=== PATIENT | male | born 1930 | race Caucasian/White ===

== ENCOUNTER 2019-05-10 14:52 | Inpatient (IN) | payer MEDICARE, MEDICAID ==
[~2019-05-10] VITALS: Ht 170.2 cm; Wt 62.1 kg
[2019-05-10 16:26] LABS: BASOPHILS % (AUTO) 0.7 % (0.0-2.0); EOSINOPHILS % (AUTO) 0.6 % (0.0-6.0); HEMATOCRIT 38 % (39-51); HEMOGLOBIN 12.7 g/dL (13.5-17.5); LYMPHOCYTES # (AUTO) 1.1 /CMM (0.8-4.8); LYMPHOCYTES % (AUTO) 23.4 % (20.0-44.0); MEAN CORPUSCULAR HGB CONC 33 g/dl (31.0-36.0); MEAN CORPUSCULAR VOLUME 90 fL (80-96); MONOCYTES # (AUTO) 0.6 /CMM (0.1-1.30); MONOCYTES % (AUTO) 13.1 % (2.0-12.0); NEUTROPHILS # (AUTO) 2.8 /CMM (1.8-8.9); NEUTROPHILS % (AUTO) 62.2 % (43.0-81.0); PLATELET COUNT (AUTO) 206 /CMM (150-450); RED BLOOD CELL COUNT(AUTO) 4.29 MIL/uL (4.5-6.0); WHITE BLOOD COUNT (AUTO) 4.5 K/uL (4.3-11.0)
[2019-05-10 16:36] LABS: SERUM AMMONIA 11 umol/L (11-32)
[2019-05-10 16:38] LABS: CALCIUM, SERUM 9.5 mg/dL (8.5-10.1); CARBON DIOXIDE 28 mmol/L (21-32); CHLORIDE 101 mmol/L (98-107); CREATININE 1.5 mg/dL (0.6-1.3); GLUCOSE 107 mg/dL (74-106); POTASSIUM 4.2 mmol/L (3.5-5.1); SODIUM SERUM 138 mmol/L (136-145); UREA NITROGEN, BLOOD 18 mg/dL (7-18)
[2019-05-10 16:43] LABS: ACETAMINOPHEN < 2 ug/ml (10-30); ALANINE AMINOTRANSFERASE 14 U/L (12-78); ALKALINE PHOSPHATASE 28 U/L (46-116); ASPARTATE AMINOTRANSFERASE 15 U/L (15-37); BILIRUBIN,DIRECT 0.1 mg/dL (0.0-0.2); BILIRUBIN,TOTAL 0.4 mg/dL (0.2-1.0); TOTAL PROTEIN, SERUM 7.7 g/dL (6.4-8.2)
--- NOTE | 2019-05-10 16:43 | NUR ---
PT REC;D TO ER VIA EMS PT LIVES IN SNF WAS SITTING IN CHAIR HAD A SYNOPE EVENT FOR 2 MIN NO FALL IV LEFT AC 18G FAMILY AT BEDSIDE PT HAS DEMETIA AND DOSNT WALK ALERT [id number] EVALUATION BY ER PROVIDER.LABS DRAWN SENT TO LAB
[2019-05-10] MEDS ORDERED: ONDANSETRON HCL/PF 4 MG/2 ML VIAL ONE (16:45)
[2019-05-10 16:48] LABS: THYROID STIMULATING HORMONE 1.598 uIU/mL (0.358-3.74)
[2019-05-10] MEDS ORDERED: RISP0.253 PO (17:07)
[2019-05-10] MEDS ORDERED: MEMA10TA PO (17:07)
[2019-05-10] MEDS ORDERED: AMLO5TAB9 PO (17:07)
[2019-05-10] MEDS ORDERED: TIMO5SOL11 EACHEYE (17:07)
[2019-05-10] MEDS ORDERED: CALC-7 PO (17:07)
[2019-05-10] MEDS ORDERED: BISA10SU11 RC (17:07)
[2019-05-10] MEDS ORDERED: LORA-259 PO (17:07)
[2019-05-10] MEDS ORDERED: DONE10TA44 PO (17:07)
[2019-05-10] MEDS ORDERED: MAGN400O6 PO (17:07)
[2019-05-10] MEDS ORDERED: BENA20TA9 PO (17:07)
[2019-05-10] MEDS ORDERED: BACL10TA PO (17:07)
[2019-05-10] MEDS ORDERED: MELO-107 PO (17:07)
[2019-05-10] MEDS ORDERED: ESCI10TA PO (17:07)
[2019-05-10] MEDS ORDERED: ACET-2605 PO (17:07)
[2019-05-10] MEDS ORDERED: DENO120V SQ (17:11)
[2019-05-10] MEDS ORDERED: LEUP30KI3 IM (17:11)
[2019-05-10] MEDS ORDERED: LEUP22.53 IM (17:18)
--- NOTE | 2019-05-10 17:22 | NUR ---
CALLED HOUSE [facility]P FOR TELE BED
--- NOTE | 2019-05-10 17:32 | NUR ---
IN AND OUT CLEAN CATCH DONE SENT TO LAB
[2019-05-10 17:36] LABS: BILIRUBIN,URINE Negative (NEGATIVE); BLOOD, URINE Trace-intact Ery/uL (NEGATIVE); COLOR,URINE Yellow (YELLOW); KETONES,URINE Negative (NEGATIVE); LEUKOCYTE ESTERASE ,URINE Negative (NEGATIVE); NITRITE, URINE Negative (NEGATIVE); PROTEIN,URINE Trace mg/dl (NEGATIVE); UGLUCOSE Negative (NEGATIVE); UROBILINOGEN,URINE 0.2 EU/dL (0.2)
[2019-05-10 17:37] LABS: APPEARANCE,URINE SLIGHTLY HAZY (CLEAR)
[2019-05-10 17:53] LABS: BACTERIA,URINE Few /HPF (None Seen); SQUAMOUS EPITHELIAL CELL,UR Rare /HPF (None Seen)
[2019-05-10 17:54] LABS: WBC,URINE 0-2 /HPF (0-3)
--- NOTE | 2019-05-10 18:24 | NUR ---
TELE BED 324-2 GIVEN
--- NOTE | 2019-05-10 18:51 | NUR ---
REPORT GIVEN TO ISABEL SANCHEZ FOR EFFIE
--- NOTE | 2019-05-10 19:08 | NUR ---
CALLED [facility]. FULLERETTE WAS PAGED.
[2019-05-10 19:50] VITALS: BP_SYST 123; BP_SYST 98; BP_DIAS 56; BP_DIAS 70
--- NOTE | 2019-05-10 19:50 | NUR ---
TAX COMPLIANCE OFFIC[place] DRIVER NOTE RECEIVED PATIENT VIA [employer]. A/O X1.
--- NOTE | 2019-05-10 19:50 | NUR ---
CARD GRADEREXERCISE PHYSIOLOGY PROFESSOR NOTE RECEIVED PATIENT VIA [employer]. A/O X1. TOLERATING ROOM AIR 98%. RESPIRATIONS ARE EVEN AND UNLABORED. NO SIGNS OF SOB NOTED. DENIES PAIN AT THIS TIME. EXTERNAL TELE MONITOR READS SINUS ALLY 57. NO APPARENT DISTRESS AT THIS TIME. IV ACCES IN LAC #18 PATENT AND SALINE LOCKED. FAMILY IS AT THE BEDSIDE. INITIAL PHYSICAL ASSESSMENT COMPLETED. SKIN ASSESSMENT COMPLETED AND PHOTOS TAKEN AND PLACED IN CHART. BELONGINGS LIST COMPLETED BY LANDSCAPE ACCOUNT MANAGER. ROOM ORIENTATIONS GIVEN. BED IS LOW AND LOCKED. SIDE RAILS UP X2. CALL LIGHT WITHIN REACH. WILL CONTINUE TO MONITOR.
[2019-05-10] MEDS ORDERED: ONDANSETRON HCL/PF 4 MG/2 ML VIAL IVP PRN (20:00)
[2019-05-10] MEDS ORDERED: ACETAMINOPHEN 325 MG TABLET PO PRN (20:00)
[2019-05-10] MEDS ORDERED: Z GUARD REMEDY 2 OZ OINT TP PRN (20:00)
[2019-05-10] MEDS ORDERED: ZOLPIDEM TARTRATE 5 MG TABLET PO PRN (20:00)
[2019-05-10] MEDS ORDERED: MISCELLANEOUS MED 1 EA EA PO PRN (20:00)
[2019-05-10] MEDS ORDERED: BISACODYL SUPP (10 MG) 10 MG/SUPP.RECT SUPP.RECT RC PRN (20:00)
[2019-05-10] MEDS ORDERED: LORAZEPAM 1 MG TABLET PO PRN (20:00)
[2019-05-10] MEDS ORDERED: MAG HYDROX/AL HYDROX/SIMETH 30 ML UDC PO PRN (20:00)
[2019-05-10] MEDS ORDERED: HYDROCODONE/APAP 5/325MG 1 EACH TABLET PO PRN (20:00)
[2019-05-10] MEDS ORDERED: MAGNESIUM HYDROXIDE 30 ML UDC PO PRN ×2 (20:00)
[2019-05-10 21:00] VITALS: BP 123/70
[2019-05-10] MEDS: ENOXAPARIN SODIUM 40 MG/0.4 ML DISP.SYRIN SQ SCH ×2 (21:00→21:23)
[2019-05-10] MEDS: risperiDONE 0.25 MG TABLET PO SCH ×3 (21:06→22:00)
[2019-05-10] MEDS: IV NS 0.9% 1,000 ML IV PRN (21:06)
--- NOTE | 2019-05-10 21:10 | NUR ---
ASSISTANT PASTRY CHEF NOTE EXTERNAL TELE MONITOR READS HR 160. ASSESSED PATIENT, HE IS HAVING TREMORS AND IS SHAKING. PATIENT CALMS AND HR RETURNS TO BASELINE. WILL CONTINUE TO MONITOR.
--- NOTE | 2019-05-10 21:30 | NUR ---
HAMMERER TAB NOTE FROY ENA, DAUGHTER OF PATIENT, REFUSED MED RESPIRADOL AND LOVENOX. STATES DOES NOT WANT PATIENT TO BE PLACED ON RESPERDOL, THE PREVIOUS FACILITY THE PATIENT ATTENDED DC RESPERDOL AND WANTS THE DOCTOR TO DC IT NOW. SHE IS OK WITH PATIENT ONLY TAKING ATIVAN WHEN NEEDED. WILL ENDORSE DAY SHIFT NURSE TO NOTIFY DR. MCDUFFIE ALSO REFUSED LOVENOX BECAUSE BELIEVES THAT THE PATIENT DOES NOT NEED IT BECAUSE "HE IS NOT TOTALLY BED RIDDEN, HE GOES TO THE WHEELCHAIR IS IS ABLE TO MOVE HIS LEGS". EXPLAINED TO THE DPDOLORES HE IS MOSTLY LAYING IN BED WELL RISK AND BENEFITS AND FROY STILL REFUSED MEDICATION. WILL CONTINUE TO MONITOR.
[2019-05-11] VITALS: BP 113/63
--- NOTE | 2019-05-11 | NUR ---
BULLET SWAGING MACHINE OPERATOR NOTE PATIENT IS SINUS ALLY HR 55. WILL CONTINUE TO MONITOR.
[2019-05-11 04:00] VITALS: BP 129/81
--- NOTE | 2019-05-11 04:00 | NUR ---
POLYSOMNOGRAPHY TECHNICIAN NOTE PATIENT IS SB 56. IN NO APPARENT DISTRESS. WILL CONTINUE TO MONITOR.
--- NOTE | 2019-05-11 06:44 | NUR ---
AGILE DEVELOPER CLOSING NOTE PATIENT IS RESTING IN BED. A/OX1. REMAINS TOLERATING ROOM AIR. RESPIRATIONS ARE EVEN AND UNLABORED. NO SIGNS OF SOB NOTED THROUGHOUT SHIFT. NO C/O PAIN THROUGHOUT SHIFT. EXTERNAL TELE MONITOR READS SINUS ALLY 56. NO DISTRESS NOTED THROUGHOUT SHIFT. IV ACCES MAINTAINED IN LAC #18 RUNNING NS@ 75ML/HR. ALL NURSING NEEDS MET. SKIN KEPT CLEAN AND DRY, TURNED Q2HR. BED IS LOW AND LOCKED. SIDE RAILS UP X2. CALL LIGHT WITHIN REACH. WILL ENDORSE TO NEXT SHIFT FOR EFFIE.
[2019-05-11 07:09] LABS: BASOPHILS % (AUTO) 0.5 % (0.0-2.0); EOSINOPHILS % (AUTO) 1.5 % (0.0-6.0); HEMATOCRIT 34 % (39-51); HEMOGLOBIN 11.3 g/dL (13.5-17.5); LYMPHOCYTES # (AUTO) 1.4 /CMM (0.8-4.8); LYMPHOCYTES % (AUTO) 47.5 % (20.0-44.0); MEAN CORPUSCULAR HGB CONC 33 g/dl (31.0-36.0); MEAN CORPUSCULAR VOLUME 88 fL (80-96); MONOCYTES # (AUTO) 0.4 /CMM (0.1-1.30); MONOCYTES % (AUTO) 14.8 % (2.0-12.0); NEUTROPHILS % (AUTO) 35.7 % (43.0-81.0); PLATELET COUNT (AUTO) 176 /CMM (150-450); RED BLOOD CELL COUNT(AUTO) 3.82 MIL/uL (4.5-6.0); WHITE BLOOD COUNT (AUTO) 2.9 K/uL (4.3-11.0)
[2019-05-11 07:40] LABS: THYROID STIMULATING HORMONE 0.894 uIU/mL (0.358-3.74)
[2019-05-11 07:48] LABS: CALCIUM, SERUM 8.5 mg/dL (8.5-10.1); PHOSPHORUS 3.7 mg/dL (2.5-4.9); POTASSIUM 4.2 mmol/L (3.5-5.1)
--- NOTE | 2019-05-11 07:53 | NUR ---
DREDGE PIPE INSTALLER OPENING NOTES RECEIVED PATIENT IN BED ASLEEP. AROU[place]ALE TO VERBAL AND TACTILE STIMULI. ALERT AND ORIENTED X1. VERBALLY RESPONSIVE. ON TELE MONITORING SINUS ALLY WITH HR: 58. NO SOB OBSERVED. DENIES ANY C/O PAIN NOR DISCOMFORT. IV ACCESS SITE INTACT AND PATENT INFUSING NS # 75ML/HR CATRACHITO WELL. BED IN LOWEST POSITION, LOCKED. CALL LIGHT WITHIN REACH.
[2019-05-11 08:00] VITALS: BP 139/76
--- NOTE | 2019-05-11 09:13 | NUR ---
BIOLOGICAL TECHNICIAN NOTES PATIENT SEEN BY PT CATRACHITO THERAPY WELL.
[2019-05-11] MEDS: TIMOLOL -XE 0.5% 5 ML BOTTLE EACHEYE SCH (09:40)
[2019-05-11] MEDS: ESCITALOPRAM OXALATE (10 MG) 10 MG TABLET PO SCH (09:40)
[2019-05-11] MEDS: MEMANTINE HCL 5 MG TABLET PO SCH ×2 (09:40→17:14)
[2019-05-11] MEDS: CALCIUM CARB 250MG /VITAMIN D 1 UDTAB PO SCH ×2 (09:41→17:15)
[2019-05-11] MEDS: BACLOFEN (10 MG) 10 MG TABLET PO SCH ×3 (09:41→17:15)
[2019-05-11] MEDS: GENTAMICIN OPTH SOLN 0.3% 5 ML BOTTLE EACHEYE SCH ×3 (13:08→21:32)
[2019-05-11] MEDS: IV NS 0.9% 1,000 ML IV PRN (13:09)
[2019-05-11 16:00] VITALS: BP 145/70
--- NOTE | 2019-05-11 18:53 | NUR ---
PHOSPHORIC ACID OPERATOR CLOSING NOTES ALERT AND AWAKE ORIENTED TO SELF ONLY. CONFUSED. DAUGHTER AT BEDSIDE. HOB ELEVATED. NO SOB. ASPIRATION PRECAUTIONS OBSERVED AT AL TIMES. ON TELE MONITORING SINUS ALLY WITH HR: 61. PATIENT WITH EPISODE OF REMOVING LEADS AND PLAYING WITH IV TUBINGS DURING THE SHIFT, ABLE TO BE REDIRECTED AT TIMES. FREQUENT VISUAL CHECK DONE. RIGHT FA # 22 INTACT AND PATENT INFUSING NS @ 75ML/HR CATRACHITO WELL. BED IN LOWEST POSITION, LOCKED. BED ALARM ON. CALL LIGHT WITHIN REACH. IN NO APPARENT DISTRESS.
--- NOTE | 2019-05-11 19:10 | NUR ---
household refrigerator mechanic notes Received Pt from morning nurse. Pt is alert and oriented X1. Pt is resting in bed comfortably. Pt's daughter at the bedside. Respiration is normal. No SOB. No S/S of distress noted. IV sites at RFA # 22 is clean, intact, patent and infuising well NS @ 75ml/hr. shot coat tender showed sinus bradycardia 54 bpm. POC was discussed with Pt's daughter Fani. Pt's daughter verbalize understanding and also agree to have lovenox given to Pt tonight. Safety precautions is maintained all the time. Bed at low position, brakes locked, side rails upX3, call light is within reach and bed alarm is on. Will continue to monitor.
[2019-05-11 20:00] VITALS: BP 125/68
[2019-05-11] MEDS: risperiDONE 0.25 MG TABLET PO SCH (21:32)
[2019-05-11] MEDS: ENOXAPARIN SODIUM 40 MG/0.4 ML DISP.SYRIN SQ SCH (21:32)
[2019-05-12] VITALS: BP 134/72
[2019-05-12] MEDS: IV NS 0.9% 1,000 ML IV PRN ×2 (02:05→16:06)
[2019-05-12 04:00] VITALS: BP 130/69
[2019-05-12 06:25] LABS: BASOPHILS % (AUTO) 0.7 % (0.0-2.0); HEMATOCRIT 38 % (39-51); HEMOGLOBIN 12.7 g/dL (13.5-17.5); LYMPHOCYTES # (AUTO) 1.6 /CMM (0.8-4.8); LYMPHOCYTES % (AUTO) 51.1 % (20.0-44.0); MEAN CORPUSCULAR HGB CONC 33 g/dl (31.0-36.0); MEAN CORPUSCULAR VOLUME 89 fL (80-96); MONOCYTES # (AUTO) 0.4 /CMM (0.1-1.30); MONOCYTES % (AUTO) 14.3 % (2.0-12.0); NEUTROPHILS % (AUTO) 31.9 % (43.0-81.0); PLATELET COUNT (AUTO) 189 /CMM (150-450); RED BLOOD CELL COUNT(AUTO) 4.27 MIL/uL (4.5-6.0); WHITE BLOOD COUNT (AUTO) 3.1 K/uL (4.3-11.0)
[2019-05-12 06:27] LABS: CALCIUM, SERUM 8.7 mg/dL (8.5-10.1); CREATININE 0.9 mg/dL (0.6-1.3); POTASSIUM 3.9 mmol/L (3.5-5.1)
--- NOTE | 2019-05-12 07:10 | NUR ---
violin maker hand notes Pt is alert and oriented X1. Pt is resting in bed comfortably. No SOB. No S/S of distress noted. IV sites at RFA is clean, intact, patent and infusing well NS @ 75 ml/hr. Routine meds were given as ordered. child monitor showed Sinus darnell with 50 bpm. Kept Pt warm, clean and comfortably. Safety precautions is maintained. Bed at low position, brakes locked, side rails upX2 and padded, call light is within reach. Will endorse to morning nurse for EFFIE.
[2019-05-12 07:30] VITALS: BP 146/78
--- NOTE | 2019-05-12 07:54 | NUR ---
DINKER OPENING NOTES RECEIVED PT SITTING UPRIGHT IN BED. PT IS ORIENTED TO NAME. PT IS AFEBRILE. RESPIRATIONS ARE EVEN AND UNLABORED, NOT IN ANY ACUTE DISTRESS NOTED. PT DENIES ANY PAIN AT THIS TIME, NO C/O SOB, N/V. IV SITE TO RFA INTACT, NO INFILTRATION NOTED. DRESSING KEPT CLEAN AND DRY. SAFETY MEASURES ARE IN PLACE. INSTRUCTED PT TO USE CALL LIGHT WHEN ASSISTANCE IS NEEDED, NEEDS FREQUENT ORIENTATION. CALL LIGHT IS LEFT WITHIN REACH. WILL MONITOR THROUGHOUT SHIFT FOR CONTINUITY OF CARE.
[2019-05-12 08:00] VITALS: BP 146/78
[2019-05-12] MEDS: BACLOFEN (10 MG) 10 MG TABLET PO SCH ×3 (08:25→16:06)
[2019-05-12] MEDS: ESCITALOPRAM OXALATE (10 MG) 10 MG TABLET PO SCH (08:25)
[2019-05-12] MEDS: MEMANTINE HCL 5 MG TABLET PO SCH ×2 (08:25→16:06)
[2019-05-12] MEDS: CALCIUM CARB 250MG /VITAMIN D 1 UDTAB PO SCH ×2 (08:25→16:05)
[2019-05-12] MEDS: TIMOLOL -XE 0.5% 5 ML BOTTLE EACHEYE SCH (08:27)
[2019-05-12] MEDS: GENTAMICIN OPTH SOLN 0.3% 5 ML BOTTLE EACHEYE SCH ×4 (08:27→21:06)
--- NOTE | 2019-05-12 09:30 | NUR ---
MS RN NOTES-- PT SEEN AND EXAMINED BY DR. BARBER.
--- NOTE | 2019-05-12 12:30 | NUR ---
MS RN NOTES-- CALLED RADIOLOGY FOR ORDERED EEG. GAVE ME THE PHONE NUMBER FOR AYYO FOR THE VALVE GRINDER. STILL WAITING A CALL BACK.
--- NOTE | 2019-05-12 14:30 | NUR ---
MS RN NOTES-- RECEIVED A CALL BACK FROM [facility]. PER YAYO, HE WILL BE HERE BY 1730 TODAY. NOTIFIED DTR AT BEDSIDE.
[2019-05-12 16:40] VITALS: BP_SYST 159; BP_SYST 96; BP_DIAS 48; BP_DIAS 80
--- NOTE | 2019-05-12 18:27 | NUR ---
MS RN CLOSING NOTES ALL DUE MEDS GIVEN, NEEDS MET AND RENDERED. PT IS A/O X1, AFEBRILE. RESPIRATIONS ARE EVEN AND UNLABORED, NOT IN ANY ACUTE DISTRESS NOTED. PT DENIES ANY PAIN AT THIS TIME, NO C/O SOB, N/V. IV SITE TO RFA INTACT, NO INFILTRATION NOTED. DRESSING KEPT CLEAN AND DRY. SAFETY MEASURES ARE IN PLACE. REMINDED PT TO USE CALL LIGHT WHEN ASSISTANCE IS NEEDED, CALL LIGHT IS LEFT WITHIN REACH. WILL ENDORSE TO NEXT SHIFT FOR CONTINUITY OF CARE.
--- NOTE | 2019-05-12 19:05 | NUR ---
MS RN NOTES RECEIVE PT IN BED ASLEEP BUT EASILY AWOKEN VERBALLY OR BY TOUCH WITH FAMILY AT BEDSIDE. PT A/O X1. RESPIRATIONS ARE EVEN AND UNLABORED WITH NO S/S OF ACUTE DISTRESS OR SOB NOTED. PT DENIES ANY PAIN AT THIS TIME. PT WITH IV SITE TO RFA INTACT WITH NS INFUSING @75ML/HR. SAFETY MEASURES IN PLACE WITH BED IN LOWEST LOCKED POSITION WITH SIDE RAILS UP X2. CALL LIGHT WITHIN REACH. WILL CONTINUE TO MONITOR.
[2019-05-12 20:00] VITALS: BP 146/78
[2019-05-12] MEDS: risperiDONE 0.25 MG TABLET PO SCH (21:06)
[2019-05-12] MEDS: ENOXAPARIN SODIUM 40 MG/0.4 ML DISP.SYRIN SQ SCH (21:08)
[2019-05-13] MEDS: IV NS 0.9% 1,000 ML IV PRN (05:29)
--- NOTE | 2019-05-13 07:19 | NUR ---
RN OPENING NOTE PT WAS RECEIVED IN BED AT LOWEST AND LOCKED POSITION WITH SIDE RAILS UP X2, A/O X1 BREATHING EVEN AND UNLABORED ON RA, NO S/S OF ANY DISTRESS OR PAIN AT THIS TIME, IV IS PATENT AND INTACT, SAFETY PRECAUTIONS IN PLACE, CALL LIGHT WITHIN REACH, WILL MONITOR ACCORDINGLY.
--- NOTE | 2019-05-13 07:40 | NUR ---
MS RN NOTES PT IN BED ASLEEP BUT EASILY AWOKEN VERBALLY OR BY TOUCH WITH FAMILY AT BEDSIDE. PT A/O X1. RESPIRATIONS ARE EVEN AND UNLABORED WITH NO S/S OF ACUTE DISTRESS OR SOB NOTED THROUGHOUT SHIFT. PT DENIES ANY PAIN AT THIS TIME. PT WITH IV SITE TO RFA INTACT WITH NS INFUSING @75ML/HR. PT KEPT CLEAN, DRY, AND COMFORTABLE. PT TURNED Q2 HOURS THROUGHOUT SHIFT. SAFETY MEASURES IN PLACE WITH BED IN LOWEST LOCKED POSITION WITH SIDE RAILS UP X2. CALL LIGHT WITHIN REACH. WILL ENDORSE TO ONCOMING NURSE FOR EFFIE.
[2019-05-13 08:00] VITALS: BP 150/82
[2019-05-13] MEDS: CALCIUM CARB 250MG /VITAMIN D 1 UDTAB PO SCH (09:05)
[2019-05-13] MEDS: ESCITALOPRAM OXALATE (10 MG) 10 MG TABLET PO SCH (09:05)
[2019-05-13] MEDS: BACLOFEN (10 MG) 10 MG TABLET PO SCH ×2 (09:05→12:15)
[2019-05-13] MEDS: TIMOLOL -XE 0.5% 5 ML BOTTLE EACHEYE SCH (09:05)
[2019-05-13] MEDS: MEMANTINE HCL 5 MG TABLET PO SCH (09:05)
[2019-05-13] MEDS: GENTAMICIN OPTH SOLN 0.3% 5 ML BOTTLE EACHEYE SCH ×2 (09:06→12:15)
[2019-05-13] MEDS ORDERED: GENT5DRO23 EACHEYE (10:16)
--- NOTE | 2019-05-13 12:46 | NUR ---
RN NOTE PER PT CIS CLEARED BY KRYSTEN AND CARMEN TO BE D/C
--- NOTE | 2019-05-13 16:11 | NUR ---
DISCHARGE NOTE PT WAS D/C AT THIS TIME IN MEDICALLY STABLE CONDITION BACK TO [facility] WITH REPORT GIVEN TO TEJINDER AT FACILITY. IV AND ID BAND WERE REMOVED. ALL D./C PAPERWORK, EXITCARE, AND BELONGING LIST WERE HANDED TO GIVEN AND TO THE PT/EMT CREW. ALL PHOTOS OF SKIN WERE TAKEN AND PLACED IN THE CHART. ALL NEEDS WERE ATTENDED TO DURING HIS STAY. PT LEFT AT THIS TIME WITH EMT CREW BACK TO [facility]
[2019-05-13] MEDS ORDERED: DONEPEZIL 5 MG TABLET PO SCH (22:00)
== END 2019-05-13 16:10 | DRG 100 ==
LOC: ER 15:00 → TELE 19:38 → MED 05-12 09:00
PROVIDERS: ATTEND Student in an Organized Health Care Education/Training Program
DX: G40.909 Epilepsy, unspecified, not intractable, without status epilepticus (principal); N17.0 Acute kidney failure with tubular necrosis; G93.41 Metabolic encephalopathy; R55 Syncope and collapse; H40.9 Unspecified glaucoma; I12.9 Hypertensive chronic kidney disease with stage 1 through stage 4 chronic kidney disease, or unspecified chronic kidney disease; N18.9 Chronic kidney disease, unspecified; G30.9 Alzheimer's disease, unspecified; F02.80 Dementia in other diseases classified elsewhere, unspecified severity, without behavioral disturbance, psychotic disturbance, mood disturbance, and anxiety; Z79.899 Other long term (current) drug therapy; Z86.73 Personal history of transient ischemic attack (TIA), and cerebral infarction without residual deficits; F32.9 Major depressive disorder, single episode, unspecified; F29 Unspecified psychosis not due to a substance or known physiological condition; M19.90 Unspecified osteoarthritis, unspecified site; Z85.46 Personal history of malignant neoplasm of prostate; Z92.3 Personal history of irradiation; E86.9 Volume depletion, unspecified
CPT/HCPCS: 36415; 70450-TC; 71045-TC; 80048-TC; 80061-TC; 80076-TC; 81000-TC; 82140-TC; 83735-TC; 83880; 84100-TC; 84443-TC; 84484-TC; 85025-TC; 85730-TC; 87081-TC; 87086-TC; 93307-TC; 93880-TC; 95819-TC; 97110-TC; 97116-TC; 97530-TC; G0378; G0480; J1650; J2405; J7030

== ENCOUNTER 2019-06-27 10:46 | Emergency (ER) | payer MEDICARE, MEDICAID ==
[~2019-06-27] VITALS: Ht 172.7 cm; Wt 74.8 kg
[~2019-06-27 10:46] MED LIST: ACET-2605 PO; AMLO5TAB9 PO; BACL10TA PO; BENA20TA9 PO; BISA10SU11 RC; CALC-7 PO; DENO120V SQ; DONE10TA44 PO; ESCI10TA PO; GENT5DRO23 EACHEYE; LEUP22.53 IM; LORA-259 PO; MAGN400O6 PO; MELO-107 PO; MEMA10TA PO; RISP0.253 PO; TIMO5SOL11 EACHEYE
--- NOTE | 2019-06-27 10:47 | NUR ---
PT LYNNETTE FROM [facility], C/O MID STERNAL CHEST PAIN, BURNING SENSATION SINCE YESTERDAY, PT IS AAOX2, NOT IN RESPIRATORY DISTRESS. KEPT RESTED AND COMFORTABLE, WILL CONTINUE TO MONITOR.
--- NOTE | 2019-06-27 10:50 | NUR ---
AT BEDSIDE FOR EVAL.
[2019-06-27] MEDS ORDERED: NITROGLYCERIN PACKET 1 GM PACKET ONE (11:04)
[2019-06-27] MEDS ORDERED: ASPIRIN 81 MG TAB.CHEW ONE (11:05)
--- NOTE | 2019-06-27 11:10 | NUR ---
ER PHLEB AT BEDSIDE FOR BLOOD DRAW.
[2019-06-27 11:18] LABS: BASOPHILS % (AUTO) 0.7 % (0.0-2.0); EOSINOPHILS % (AUTO) 0.7 % (0.0-6.0); HEMATOCRIT 38 % (39-51); HEMOGLOBIN 12.5 g/dL (13.5-17.5); LYMPHOCYTES # (AUTO) 1.2 /CMM (0.8-4.8); LYMPHOCYTES % (AUTO) 33.1 % (20.0-44.0); MEAN CORPUSCULAR HGB CONC 33 g/dl (31.0-36.0); MEAN CORPUSCULAR VOLUME 90 fL (80-96); MONOCYTES # (AUTO) 0.5 /CMM (0.1-1.30); MONOCYTES % (AUTO) 14.2 % (2.0-12.0); NEUTROPHILS # (AUTO) 1.9 /CMM (1.8-8.9); NEUTROPHILS % (AUTO) 51.3 % (43.0-81.0); PLATELET COUNT (AUTO) 183 /CMM (150-450); RED BLOOD CELL COUNT(AUTO) 4.16 MIL/uL (4.5-6.0); WHITE BLOOD COUNT (AUTO) 3.7 K/uL (4.3-11.0)
--- NOTE | 2019-06-27 11:25 | NUR ---
STOPER AT BEDSIDE FOR XRAY.
[2019-06-27] MEDS ORDERED: ASPIRIN 81 MG TAB.CHEW PO ONE (11:30)
[2019-06-27] MEDS ORDERED: NITROGLYCERIN PACKET 1 GM PACKET TD ONE (11:30)
[2019-06-27 11:38] LABS: ALANINE AMINOTRANSFERASE 16 U/L (12-78); ALBUMIN 3.8 g/dL (3.4-5.0); ALKALINE PHOSPHATASE 25 U/L (46-116); ASPARTATE AMINOTRANSFERASE 18 U/L (15-37); BILIRUBIN,DIRECT 0.1 mg/dL (0.0-0.2); BILIRUBIN,TOTAL 0.4 mg/dL (0.2-1.0); CALCIUM, SERUM 9.1 mg/dL (8.5-10.1); CARBON DIOXIDE 28 mmol/L (21-32); CHLORIDE 104 mmol/L (98-107); CREATININE 1.2 mg/dL (0.6-1.3); GLUCOSE 117 mg/dL (74-106); POTASSIUM 4.1 mmol/L (3.5-5.1); SODIUM SERUM 139 mmol/L (136-145); TOTAL PROTEIN, SERUM 7.6 g/dL (6.4-8.2); UREA NITROGEN, BLOOD 24 mg/dL (7-18)
--- NOTE | 2019-06-27 14:14 | NUR ---
CALLED AMBULANCE FOR RETURN. ETA 1515. TRIP NUMBER [id number].
[2019-06-27 16:02] VITALS: BP 119/68
--- NOTE | 2019-06-27 16:02 | NUR ---
REPORT GIVEN TO EMT FOR PT TRANSFER
--- NOTE | 2019-06-27 16:07 | NUR ---
IV removed. Catheter intact and site benign. Pressure and 4x4 applied to site. No bleeding noted. Patient discharged to home in stable condition. Written and verbal after care instructions given. Patient verbalizes understanding of instruction.
== END 2019-06-27 16:07 ==
LOC: ER 10:47
DX: R07.89 Other chest pain (principal); F03.90 Unspecified dementia, unspecified severity, without behavioral disturbance, psychotic disturbance, mood disturbance, and anxiety; I10 Essential (primary) hypertension; Z85.46 Personal history of malignant neoplasm of prostate; Z79.899 Other long term (current) drug therapy
CPT/HCPCS: 36415; 71045-TC; 80048-TC; 80076-TC; 84484-TC; 85025-TC; 87081-TC

== ENCOUNTER 2019-08-23 11:40 | Emergency (ER) | payer MEDICARE, OTHER, MEDICAID ==
[~2019-08-23] VITALS: Ht 167.6 cm; Wt 68.0 kg
--- NOTE | 2019-08-23 11:50 | NUR ---
SEEN BY DR. COBIAN
[2019-08-23] MEDS ORDERED: TRAM50TA2 PO (11:57)
--- NOTE | 2019-08-23 12:00 | NUR ---
GLF IN SENIOR CARE; FELL FROM WHEELCHAIR. WITNESSED, PER EMS HIT HEAD. PATIENT A/OX2, BREATHING EVEN AND UNLABORED, NO SOB NOTED, NEEDS ATTENDED. KEPT COMFORTABLE. ATTACHED TO THE DIRECTOR CHECK.
--- NOTE | 2019-08-23 13:17 | NUR ---
JAYSHREE ETA AT 1415. TRIP #[id number].
--- NOTE | 2019-08-23 14:01 | NUR ---
REPORT GIVEN TO HI AT [facility]. MADE AWARE. PATIENT DISCHARGED TO [facility]. NO DISTRESS NOTED. NEEDS ATTENDED. PATIENT VERBALLY RESPONSIVE, ASSESSED FOR RIB PAIN, PATIENT DENIES DURING PALPATION. REPORT GIVEN TO DIRECTOR FRANCHISE SALES. LEFT IN STABLE CONDITION.
[2019-08-23 14:02] VITALS: BP 129/87
[2019-10-10] MEDS ORDERED: CIPR-262 PO (10:06)
[2019-11-08] MEDS ORDERED: CEFE1FRO IV (11:42)
== END 2019-08-23 14:04 ==
LOC: ER 11:41
DX: S09.8XXA Other specified injuries of head, initial encounter (principal); F03.90 Unspecified dementia, unspecified severity, without behavioral disturbance, psychotic disturbance, mood disturbance, and anxiety; I10 Essential (primary) hypertension; Z79.899 Other long term (current) drug therapy; W05.0XXA Fall from non-moving wheelchair, initial encounter; Y93.89 Activity, other specified; Y92.89 Other specified places as the place of occurrence of the external cause; Y99.8 Other external cause status
CPT/HCPCS: 70450-TC

== ENCOUNTER 2019-10-05 23:36 | Inpatient (IN) | payer MEDICARE, MEDICAID ==
[~2019-10-05] VITALS: Ht 175.3 cm; Wt 59.4 kg
[~2019-10-05 23:36] MED LIST changes: -ACET-2605 PO; -BISA10SU11 RC; -CALC-7 PO; -DENO120V SQ; -GENT5DRO23 EACHEYE; -LEUP22.53 IM; -MAGN400O6 PO; +TRAM50TA2 PO
[2019-10-05 23:59] LABS: BASOPHILS % (AUTO) 0.4 % (0.0-2.0); HEMATOCRIT 40 % (39-51); HEMOGLOBIN 12.9 g/dL (13.5-17.5); LYMPHOCYTES # (AUTO) 0.6 /CMM (0.8-4.8); LYMPHOCYTES % (AUTO) 9.5 % (20.0-44.0); MEAN CORPUSCULAR HGB CONC 33 g/dl (31.0-36.0); MEAN CORPUSCULAR VOLUME 89 fL (80-96); MONOCYTES # (AUTO) 0.5 /CMM (0.1-1.30); MONOCYTES % (AUTO) 8.4 % (2.0-12.0); NEUTROPHILS % (AUTO) 81.7 % (43.0-81.0); PLATELET COUNT (AUTO) 212 /CMM (150-450); RED BLOOD CELL COUNT(AUTO) 4.42 MIL/uL (4.5-6.0); WHITE BLOOD COUNT (AUTO) 6.1 K/uL (4.3-11.0)
[2019-10-06] MEDS ORDERED: IV NS 0.9% 500 ML BAG IV ONE
[2019-10-06 00:08] LABS: CALCIUM, SERUM 9.7 mg/dL (8.5-10.1); CARBON DIOXIDE 26 mmol/L (21-32); CHLORIDE 103 mmol/L (98-107); CREATININE 1.8 mg/dL (0.6-1.3); GLUCOSE 156 mg/dL (74-106); POTASSIUM 4.9 mmol/L (3.5-5.1); SODIUM SERUM 140 mmol/L (136-145); UREA NITROGEN, BLOOD 34 mg/dL (7-18)
--- NOTE | 2019-10-06 00:11 | NUR ---
patient sent to ct
[2019-10-06 00:14] LABS: APPEARANCE,URINE Cloudy (CLEAR); BILIRUBIN,URINE SMALL (NEGATIVE); BLOOD, URINE Large Ery/uL (NEGATIVE); COLOR,URINE Yellow (YELLOW); KETONES,URINE 15 (NEGATIVE); LEUKOCYTE ESTERASE ,URINE Small (NEGATIVE); NITRITE, URINE Positive (NEGATIVE); PROTEIN,URINE >=300 mg/dl (NEGATIVE); UGLUCOSE Negative (NEGATIVE)
[2019-10-06 00:14] LABS: ALANINE AMINOTRANSFERASE 20 U/L (12-78); ALBUMIN 3.9 g/dL (3.4-5.0); ALKALINE PHOSPHATASE 30 U/L (46-116); ASPARTATE AMINOTRANSFERASE 21 U/L (15-37); BILIRUBIN,DIRECT 0.1 mg/dL (0.0-0.2); BILIRUBIN,TOTAL 0.6 mg/dL (0.2-1.0); TOTAL PROTEIN, SERUM 7.8 g/dL (6.4-8.2)
--- NOTE | 2019-10-06 00:15 | NUR ---
LYNNETTE FROM [facility]. TO ER BED 8. AAOX1. NOT IS RESP DISTRESS NOTED. BROUGHT IN FOR ALTERED MENTAL STATUS. PER EMS REPORT, PT IS REPORTED TO BE ALTERED THAN USUAL. PT IS REPORTED BASELINE AAOX1. URINE COLLECTED FROM PT AND NOTED DARK FOUL SMELLING URINE. MD WAS AT BEDSIDE FOR EVAL. ORDERS RECEIVED NOTED AND CARRIED OUT. IV LINE IS ALREADY ESTABLISHED ON THE LFA W/ 20G. BLOOD DRAWN AND AND GIVEN TO WOODWIND REEDS CUTTER @ BEDSIDE.
[2019-10-06 01:03] LABS: RBC,URINE TOO NUMEROUS TO COUN /HPF (0-2)
[2019-10-06 01:04] LABS: BACTERIA,URINE Many /HPF (None Seen); SQUAMOUS EPITHELIAL CELL,UR Rare /HPF (None Seen); WBC,URINE TOO NUMEROUS TO COUN /HPF (0-3)
[2019-10-06] MEDS ORDERED: CEFTRIAXONE 1GM BAG (ER ONLY) 50 ML IV ONE (02:16)
[2019-10-06] MEDS ORDERED: CEFTRIAXONE 1GM BAG (ER ONLY) 1 GM/50 ML PIGGYBACK IV ONE (02:30)
[2019-10-06] MEDS ORDERED: IV NS 0.9% 1,000 ML BAG IV ONE (02:30)
--- NOTE | 2019-10-06 02:40 | NUR ---
BED ASSIGNMENT 324-1
[2019-10-06 03:00] VITALS: BP 158/89
[2019-10-06] MEDS ORDERED: HYDROCODONE/APAP 5/325MG 1 EACH TABLET PO PRN (03:00)
[2019-10-06] MEDS ORDERED: MAGNESIUM HYDROXIDE 30 ML UDC PO PRN (03:00)
[2019-10-06] MEDS ORDERED: Z GUARD REMEDY 2 OZ OINT TP PRN (03:00)
[2019-10-06] MEDS ORDERED: MAG HYDROX/AL HYDROX/SIMETH 30 ML UDC PO PRN (03:00)
[2019-10-06] MEDS ORDERED: ACETAMINOPHEN 325 MG TABLET PO PRN (03:00)
[2019-10-06] MEDS ORDERED: ONDANSETRON HCL/PF 4 MG/2 ML VIAL IVP PRN (03:00)
[2019-10-06 03:10] VITALS: BP 158/89
--- NOTE | 2019-10-06 03:10 | NUR ---
REPORT GIVEN TO DANIEL BUSH FOR EFFIE BY JAZZY EMERY RN AND EMT SENT PT TO UNIT ON [address]. NAD NOTED DURING TRANSPORT.
--- NOTE | 2019-10-06 04:23 | NUR ---
admission notes: received report from keturah morley. pt brought to the unit via gurney at 0300am. pt cc: more altered than usual"according to report. from yanet hdez [facility]. pt not talking, open eyes spontaneously, a/o x1. on ra respirations even and unlabored. admitted under dr saavedra, dx uti, acute on chronic encephalopathy, renal failure. iv access patent and flushing well. skin assessment performed, please see skin assessment log. inventory of belongings completed by nikkie tang. oriented pt to unit policy and hourly rounding use of call light system, however pt unable to comprehend. vs taken and recorded. safety precautions for fall initiated, call light in reach, will continue monitoring pt.
[2019-10-06] MEDS: IV NS 0.9% 1,000 ML IV PRN ×2 (04:53→13:16)
--- NOTE | 2019-10-06 06:57 | NUR ---
end of shift report: pt remains non verbal, just making incomprehensible sounds. on ra, respirations even and unlabored. appears calm and comfortable, no facial grimace noted. iv access remains patent and flushing well, infusing with ns at 75ml/hr. ble kept offloaded on pillows. awaiting delivery of kci mattress, wound care consult. safety precautions for fall remains engaged, call light in reach, will endorse to day rn for continuity of care.
--- NOTE | 2019-10-06 08:00 | NUR ---
MS RN OPENING NOTES Received Patient asleep and resting in bed. A/O x 1. VS stable with no acute distress. Breathing even and unlabored on room air with no respiratory distress. Denies pain. No signs and symptoms of pain. 20g PIV on LFA clean, intact, patent and flushing well with NS infusing at 75ml/hr. Safety precautions in place. Bed locked and set to lowest position with side rails x 2 up. All needs rendered at this time. Call light within reach. Will continue to monitor.
[2019-10-06] MEDS ORDERED: TIMOLOL -XE 0.5% 5 ML BOTTLE EACHEYE SCH (09:00)
[2019-10-06] MEDS: HEPARIN SODIUM, PORCINE 5000 UNITS/1 ML VIAL SQ SCH ×2 (09:10→21:23)
[2019-10-06] MEDS: BACLOFEN (10 MG) 10 MG TABLET PO SCH ×3 (09:14→16:54)
[2019-10-06] MEDS: MELOXICAM 7.5 MG TABLET PO SCH (09:14)
[2019-10-06] MEDS: PANTOPRAZOLE 40 MG TABLET.DR PO SCH (09:14)
[2019-10-06] MEDS: ESCITALOPRAM OXALATE (10 MG) 10 MG TABLET PO SCH (09:14)
[2019-10-06] MEDS: TIMOLOL 0.5% SOLN OPHTH 5 ML BOTTLE EACHEYE SCH (09:14)
[2019-10-06] MEDS: BENAZEPRIL HCL 20 MG TABLET PO SCH (09:14)
[2019-10-06] MEDS: MEMANTINE HCL 5 MG TABLET PO SCH ×2 (09:15→16:54)
[2019-10-06] MEDS: AMLODIPINE BESYLATE 5 MG TABLET PO SCH (09:15)
--- NOTE | 2019-10-06 10:34 | NUR ---
WOUND CARE CONSULT: PT PRESENTS WITH SCARRING TO SACRUM AND BUTTOCKS, PRESENT ON ADMISSION. RECOMMENDATIONS MADE FOR SKIN PROTECTION. DISCUSSED WITH NURSING STAFF. FIRST STEP LOW AIRLOSS MATTRESS ON ORDER. WILL SEE PRN. MULLER IN AGREEMENT WITH PLAN OF CARE. Addendum: 10/06/19 at 1036 by DUC LYMAN WNDNU Amended: Links added.
[2019-10-06 16:24] VITALS: BP 142/85
--- NOTE | 2019-10-06 18:42 | NUR ---
MS RN CLOSING NOTES Patient asleep and resting in bed. A/O x 1. VS stable with no acute distress. Breathing even and unlabored on room air with no respiratory distress. Denies pain. No signs and symptoms of pain. 20g PIV on LFA clean, intact, patent and flushing well with NS infusing at 75ml/hr. Safety precautions in place. Bed locked and set to lowest position with side rails x 2 up. All needs rendered at this time. Call light within reach. Will endorse plan of care to oncoming shift.
[2019-10-06 20:00] VITALS: BP 127/71
[2019-10-06 20:06] VITALS: BP 127/71
[2019-10-06] MEDS: risperiDONE 0.25 MG TABLET PO SCH (21:24)
[2019-10-06] MEDS: DONEPEZIL 5 MG TABLET PO SCH (21:24)
[2019-10-07] MEDS: IV NS 0.9% 1,000 ML IV PRN ×2 (01:44→17:49)
[2019-10-07] MEDS: CEFTRIAXONE 1 G in IV D5W 50 ML IV SCH (01:44)
--- NOTE | 2019-10-07 05:00 | NUR ---
MS RN CLOSING NOTES: PATIENT IN BED, ASLEEP. RESTED THROUGHOUT THE NIGHT. NO SOB NOTED. NO PAIN DURING THE SHIFT. BEDREST. HAD SMALL BM TODAY, BROWNISH COLOR, SOFT. PERICARE DONE. KEPT PATIENT DRY. MEPILEX DRESSING APPLIED ON THE SACROCOCCYX AREA TO PROTECT THE DRIED SCABS. BED ALARM ON. BED IN LOWEST AND LOCKED POSITION.
[2019-10-07 06:20] LABS: BASOPHILS % (AUTO) 0.8 % (0.0-2.0); EOSINOPHILS % (AUTO) 0.4 % (0.0-6.0); HEMATOCRIT 34 % (39-51); HEMOGLOBIN 11.4 g/dL (13.5-17.5); LYMPHOCYTES # (AUTO) 1.3 /CMM (0.8-4.8); LYMPHOCYTES % (AUTO) 40.9 % (20.0-44.0); MEAN CORPUSCULAR HGB CONC 34 g/dl (31.0-36.0); MEAN CORPUSCULAR VOLUME 88 fL (80-96); MONOCYTES # (AUTO) 0.5 /CMM (0.1-1.30); MONOCYTES % (AUTO) 14.8 % (2.0-12.0); NEUTROPHILS # (AUTO) 1.4 /CMM (1.8-8.9); NEUTROPHILS % (AUTO) 43.1 % (43.0-81.0); PLATELET COUNT (AUTO) 167 /CMM (150-450); RED BLOOD CELL COUNT(AUTO) 3.82 MIL/uL (4.5-6.0); WHITE BLOOD COUNT (AUTO) 3.3 K/uL (4.3-11.0)
[2019-10-07 06:59] LABS: THYROID STIMULATING HORMONE 0.809 uIU/mL (0.358-3.74)
[2019-10-07 07:02] LABS: ALBUMIN 3.1 g/dL (3.4-5.0); BILIRUBIN,TOTAL 0.4 mg/dL (0.2-1.0); CALCIUM, SERUM 8.2 mg/dL (8.5-10.1); PHOSPHORUS 2.8 mg/dL (2.5-4.9); POTASSIUM 3.8 mmol/L (3.5-5.1); TOTAL PROTEIN, SERUM 6.2 g/dL (6.4-8.2)
[2019-10-07 08:00] VITALS: BP 159/81
--- NOTE | 2019-10-07 08:00 | NUR ---
MS RN OPENING NOTES Received Patient asleep and resting in bed. A/O x 1. VS stable with no acute distress. Breathing even and unlabored on room air with no respiratory distress. Denies pain. No signs and symptoms of pain. 20g PIV on LFA clean, intact, patent and flushing well with NS infusing at 75ml/hr. Safety precautions in place. Bed locked and set to lowest position with side rails x 2 up.Call light within reach. Will continue to monitor.
[2019-10-07] MEDS: BACLOFEN (10 MG) 10 MG TABLET PO SCH ×3 (09:29→18:01)
[2019-10-07] MEDS: MEMANTINE HCL 5 MG TABLET PO SCH ×2 (09:29→18:01)
[2019-10-07] MEDS: BENAZEPRIL HCL 20 MG TABLET PO SCH (09:29)
[2019-10-07] MEDS: ESCITALOPRAM OXALATE (10 MG) 10 MG TABLET PO SCH (09:29)
[2019-10-07] MEDS: AMLODIPINE BESYLATE 5 MG TABLET PO SCH (09:30)
[2019-10-07] MEDS: PANTOPRAZOLE 40 MG TABLET.DR PO SCH (09:36)
[2019-10-07] MEDS: MELOXICAM 7.5 MG TABLET PO SCH (09:36)
[2019-10-07] MEDS: HEPARIN SODIUM, PORCINE 5000 UNITS/1 ML VIAL SQ SCH ×2 (09:37→22:16)
[2019-10-07] MEDS: TIMOLOL 0.5% SOLN OPHTH 5 ML BOTTLE EACHEYE SCH (12:17)
[2019-10-07 16:00] VITALS: BP 110/73
--- NOTE | 2019-10-07 18:56 | NUR ---
PT COMFORTABLY RESTING IN BED WITH NO S/S OF PAIN OR DISTRESS.WITH ONGOING IVF NS AT 75 ML/HR INFUSING WELL. TURNED AND REPOSITIONED EVERY TWO HRS.WILL MONITOR.
--- NOTE | 2019-10-07 19:30 | NUR ---
RN Notes Patient asleep in bed, no signs of distress and discomfort noted. On room air with good saturation. IV access on Left forearm patent and intact with ongoing IVF infusing well. Repositioned per protocol, heels offloaded. Will continue to monitor.
[2019-10-07 20:00] VITALS: BP 105/64
[2019-10-07 22:00] VITALS: BP 105/64
[2019-10-07] MEDS: DONEPEZIL 5 MG TABLET PO SCH (22:16)
[2019-10-07] MEDS: risperiDONE 0.25 MG TABLET PO SCH (22:17)
[2019-10-08] MEDS: CEFTRIAXONE 1 G in IV D5W 50 ML IV SCH (01:49)
[2019-10-08 06:09] LABS: BASOPHILS % (AUTO) 0.9 % (0.0-2.0); EOSINOPHILS % (AUTO) 0.7 % (0.0-6.0); HEMATOCRIT 35 % (39-51); HEMOGLOBIN 11.6 g/dL (13.5-17.5); LYMPHOCYTES # (AUTO) 1.8 /CMM (0.8-4.8); LYMPHOCYTES % (AUTO) 47.9 % (20.0-44.0); MEAN CORPUSCULAR HGB CONC 33 g/dl (31.0-36.0); MEAN CORPUSCULAR VOLUME 89 fL (80-96); MONOCYTES # (AUTO) 0.6 /CMM (0.1-1.30); NEUTROPHILS # (AUTO) 1.4 /CMM (1.8-8.9); NEUTROPHILS % (AUTO) 35.5 % (43.0-81.0); PLATELET COUNT (AUTO) 155 /CMM (150-450); RED BLOOD CELL COUNT(AUTO) 3.94 MIL/uL (4.5-6.0); WHITE BLOOD COUNT (AUTO) 3.8 K/uL (4.3-11.0)
[2019-10-08 06:31] LABS: CALCIUM, SERUM 8.3 mg/dL (8.5-10.1); PHOSPHORUS 2.7 mg/dL (2.5-4.9)
--- NOTE | 2019-10-08 06:45 | NUR ---
RN Notes Patient asleep, HOB slightly elevated, no signs of distress and discomfort noted. Vital signs stable, afebrile. Patient more alert with periods of confusion. Current diet tolerated well, no signs of aspiration. Kept clean and dry, turned and reposition per protocol. Safety measures and fall precaution observed with call light within reach. Will continue to monitor.
[2019-10-08 08:00] VITALS: BP 115/71
--- NOTE | 2019-10-08 08:00 | NUR ---
ms rn received on bed, awake,not in any form of distress, respirations even and unlabored,no sob noted, lungs are diminish, abdomen soft,positive bowel sounds,denies pain at this time, will monitor patient.
[2019-10-08] MEDS: AMLODIPINE BESYLATE 5 MG TABLET PO SCH (08:34)
[2019-10-08] MEDS: MEMANTINE HCL 5 MG TABLET PO SCH ×2 (08:34→18:07)
[2019-10-08] MEDS: ESCITALOPRAM OXALATE (10 MG) 10 MG TABLET PO SCH (08:34)
[2019-10-08] MEDS: PANTOPRAZOLE 40 MG TABLET.DR PO SCH (08:35)
[2019-10-08] MEDS: BACLOFEN (10 MG) 10 MG TABLET PO SCH ×3 (08:35→18:07)
[2019-10-08] MEDS: BENAZEPRIL HCL 20 MG TABLET PO SCH (08:35)
[2019-10-08] MEDS: HEPARIN SODIUM, PORCINE 5000 UNITS/1 ML VIAL SQ SCH ×2 (08:45→22:00)
[2019-10-08] MEDS: MELOXICAM 7.5 MG TABLET PO SCH (08:45)
[2019-10-08] MEDS: TIMOLOL 0.5% SOLN OPHTH 5 ML BOTTLE EACHEYE SCH (08:49)
--- NOTE | 2019-10-08 09:30 | NUR ---
ms morley breakfast served,due meds given, tolerated well.
--- NOTE | 2019-10-08 09:50 | NUR ---
ms milli was seen by kaveh rivas w/ orders made and carried out.
[2019-10-08 16:00] VITALS: BP 118/70
--- NOTE | 2019-10-08 16:17 | NUR ---
ms rn on bed, no distress noted.
--- NOTE | 2019-10-08 19:15 | NUR ---
PROVIDER RELATIONS MANAGER: RECEIVED REPORT FROM ANIA SANCHEZ AT 1910. PT A/O X1, ON RA RESPIRATIONS EVEN AND UNLABORED. APPEARS CALM AND COMFORTABLE. IV ACCESS PATENT AND FLUSHING WELL, INFUSING WITH NS AT 75 ML/HR. ON IV ATB FOR UTI. ASPIRATION PRECAUTION INITIATED. SAFETY PRECAUTIONS FOR FALL INITIATED, CALL LIGHT IN REACH, WILL CONTINUE MONITORING PT.
[2019-10-08] MEDS: IV NS 0.9% 1,000 ML IV PRN (19:38)
[2019-10-08 20:00] VITALS: BP 103/59
[2019-10-08] MEDS: DONEPEZIL 5 MG TABLET PO SCH (22:00)
[2019-10-08] MEDS: risperiDONE 0.25 MG TABLET PO SCH (22:00)
--- NOTE | 2019-10-08 22:16 | NUR ---
RN NOTES: KEPT ON ASPIRATION PRECAUTIONS. DUE MEDS ADMINISTERED. ASSISTED PT IN FEEDING, PROVIDED SNACK, PT ATE 100%.
[2019-10-09] MEDS: CEFTRIAXONE 1 G in IV D5W 50 ML IV SCH (01:43)
[2019-10-09 06:23] LABS: BASOPHILS % (AUTO) 0.5 % (0.0-2.0); EOSINOPHILS % (AUTO) 1.1 % (0.0-6.0); HEMATOCRIT 32 % (39-51); HEMOGLOBIN 10.7 g/dL (13.5-17.5); LYMPHOCYTES # (AUTO) 1.7 /CMM (0.8-4.8); LYMPHOCYTES % (AUTO) 50.8 % (20.0-44.0); MEAN CORPUSCULAR HGB CONC 34 g/dl (31.0-36.0); MEAN CORPUSCULAR VOLUME 88 fL (80-96); MONOCYTES # (AUTO) 0.5 /CMM (0.1-1.30); MONOCYTES % (AUTO) 16.3 % (2.0-12.0); NEUTROPHILS % (AUTO) 31.3 % (43.0-81.0); PLATELET COUNT (AUTO) 147 /CMM (150-450); WHITE BLOOD COUNT (AUTO) 3.3 K/uL (4.3-11.0)
--- NOTE | 2019-10-09 06:41 | NUR ---
end of shift report: pt remains non verbal, just making incomprehensible sounds. on ra, respirations even and unlabored. appears calm and comfortable, no facial grimace noted. iv access remains patent and flushing well, infusing with ns at 75ml/hr. all due meds administered. per md continue with iv rocephin q24hrs for uti. pt's a feeder, kept on aspiration precautions. ble kept offloaded on pillows. awaiting delivery of kci mattress, wound care consult. safety precautions for fall remains engaged, call light in reach, will endorse to day rn for continuity of care.
[2019-10-09 06:44] LABS: CALCIUM, SERUM 8.2 mg/dL (8.5-10.1); MAGNESIUM 1.8 mg/dL (1.8-2.4); PHOSPHORUS 2.6 mg/dL (2.5-4.9); POTASSIUM 3.6 mmol/L (3.5-5.1)
--- NOTE | 2019-10-09 07:00 | NUR ---
MS/RN Opening Note Received patient AO x 1, confused, able to responds all stimuli. Skin is warm to touch, no appears pain or any discomfort. Respiratory even and unlabored with room air. Keep lower position of bed with elevated HOB. Noticed pt pulled out IV site. Call light within reach, will continue to monitor.
[2019-10-09] MEDS: PANTOPRAZOLE 40 MG TABLET.DR PO SCH (07:45)
[2019-10-09 08:00] VITALS: BP 132/66
[2019-10-09] MEDS: MELOXICAM 7.5 MG TABLET PO SCH (08:21)
[2019-10-09] MEDS: ESCITALOPRAM OXALATE (10 MG) 10 MG TABLET PO SCH (08:21)
[2019-10-09] MEDS: MEMANTINE HCL 5 MG TABLET PO SCH ×2 (08:21→17:26)
[2019-10-09] MEDS: AMLODIPINE BESYLATE 5 MG TABLET PO SCH (08:22)
[2019-10-09] MEDS: BENAZEPRIL HCL 20 MG TABLET PO SCH (08:22)
[2019-10-09] MEDS: BACLOFEN (10 MG) 10 MG TABLET PO SCH ×3 (08:22→17:26)
[2019-10-09] MEDS: HEPARIN SODIUM, PORCINE 5000 UNITS/1 ML VIAL SQ SCH ×2 (08:24→21:10)
[2019-10-09] MEDS: TIMOLOL 0.5% SOLN OPHTH 5 ML BOTTLE EACHEYE SCH (08:27)
[2019-10-09] MEDS: IV NS 0.9% 1,000 ML IV PRN (14:36)
[2019-10-09 16:00] VITALS: BP 122/70
--- NOTE | 2019-10-09 18:30 | NUR ---
MS/RN Closing Note Patient is sleeping comfortably in bed, no appears pain or any discomfort. Skin is warm to touch, kept intact new IV site. Resp. even and unlabored with room air, no sob or distress observed. Keep remain lower portion of bed with elevated HOB. Call light within reach, all needs met, will endorse night nurse.
--- NOTE | 2019-10-09 19:50 | NUR ---
CUSHION FORMER: RECEIVED REPORT FROM ECHO SANCHEZ AT 1910. PT A/O X1, PER REPORT PULLED OUT IV ACCESS TWICE . PT VERY CONFUSED, TRYING TO GET OUT OF BED. ASPIRATION PRECAUTION INITIATED. WILL RESTART NEW IV ACCESS. SAFETY PRECAUTIONS FOR FALL INITIATED, CALL LIGHT IN REACH, WILL CONTINUE MONITORING PT.
[2019-10-09 20:00] VITALS: BP 138/80
--- NOTE | 2019-10-09 20:13 | NUR ---
rn notes: pt pulled out line again, 3rd time, will restart iv access. notified hospitalist vmware consultant, dr funk, with telephone orders received for bilateral soft wrist restraint, order read back, verified and carried out. yarn examinerkrystina perry made aware.
--- NOTE | 2019-10-09 20:16 | NUR ---
rn notes: restraint protocol initiated, pt able to move and wiggle arms and hands, good capillary refill noted, radial pulses palpable and intact, will continue to monitor.
[2019-10-09] MEDS: DONEPEZIL 5 MG TABLET PO SCH (21:09)
[2019-10-09] MEDS: risperiDONE 0.25 MG TABLET PO SCH (21:09)
[2019-10-10] MEDS: CEFTRIAXONE 1 G in IV D5W 50 ML IV SCH (01:12)
[2019-10-10] MEDS: IV NS 0.9% 1,000 ML IV PRN (04:04)
--- NOTE | 2019-10-10 06:36 | NUR ---
end of shift report: pt remains confused, on bilateral soft wrist restraint. radial pulses palpable, intact, pt able to move and wiggle arms and hands, with good capillary refill noted. no s/s of impediment in circulation noted. iv access remains patent and flushing well, infusing with ns at 75ml/hr. safety precautions for fall remains engaged, call light in reach, will endorse to day rn for continuity of care.
--- NOTE | 2019-10-10 07:17 | NUR ---
INITIAL PT A/O X1, PER REPORT PULLED OUT IV ACCESS TWICE . PT VERY CONFUSED, TRYING TO GET OUT OF BED. ASPIRATION PRECAUTION INITIATED. NEW IV ACCESS. PT CURRENTLY BEING BATHED SAFETY PRECAUTIONS FOR FALL INITIATED, CALL LIGHT IN REACH, WILL CONTINUE MONITORING PT.
[2019-10-10] MEDS: PANTOPRAZOLE 40 MG TABLET.DR PO SCH (07:44)
[2019-10-10 08:00] VITALS: BP 168/87
[2019-10-10] MEDS: HEPARIN SODIUM, PORCINE 5000 UNITS/1 ML VIAL SQ SCH (08:29)
[2019-10-10 08:30] VITALS: BP 168/89
[2019-10-10] MEDS: BENAZEPRIL HCL 20 MG TABLET PO SCH (08:30)
[2019-10-10] MEDS: ESCITALOPRAM OXALATE (10 MG) 10 MG TABLET PO SCH (08:30)
[2019-10-10] MEDS: AMLODIPINE BESYLATE 5 MG TABLET PO SCH (08:30)
[2019-10-10] MEDS: MELOXICAM 7.5 MG TABLET PO SCH (08:30)
[2019-10-10] MEDS: BACLOFEN (10 MG) 10 MG TABLET PO SCH ×2 (08:30→12:22)
[2019-10-10] MEDS: TIMOLOL 0.5% SOLN OPHTH 5 ML BOTTLE EACHEYE SCH (08:31)
[2019-10-10] MEDS: MEMANTINE HCL 5 MG TABLET PO SCH (08:34)
[2019-10-10] MEDS ORDERED: CIPR-262 PO (10:06)
--- NOTE | 2019-10-10 11:19 | NUR ---
REPORT REPORT GIVEN TO AURELIA AT [facility] ETA 1300
--- NOTE | 2019-10-10 13:26 | NUR ---
transportation AM [address] # 29 TRANSPORTING PT TO [facility]
== END 2019-10-10 13:20 | DRG 682 ==
LOC: ER 23:37 → MED 10-06 02:43
PROVIDERS: ADMIT Hospitalist; ATTEND Nurse Practitioner Acute Care
DX: N17.0 Acute kidney failure with tubular necrosis (principal); G93.41 Metabolic encephalopathy; R53.2 Functional quadriplegia; N39.0 Urinary tract infection, site not specified; I12.0 Hypertensive chronic kidney disease with stage 5 chronic kidney disease or end stage renal disease; D68.59 Other primary thrombophilia; Z68.1 Body mass index [BMI] 19.9 or less, adult; E86.0 Dehydration; F03.90 Unspecified dementia, unspecified severity, without behavioral disturbance, psychotic disturbance, mood disturbance, and anxiety; F32.9 Major depressive disorder, single episode, unspecified; N18.6 End stage renal disease; Z79.899 Other long term (current) drug therapy; Z85.46 Personal history of malignant neoplasm of prostate; Z86.73 Personal history of transient ischemic attack (TIA), and cerebral infarction without residual deficits; L89.90 Pressure ulcer of unspecified site, unspecified stage; B95.5 Unspecified streptococcus as the cause of diseases classified elsewhere
CPT/HCPCS: 36415; 70450-TC; 71045-TC; 80048-TC; 80053-TC; 80061-TC; 80076-TC; 81000-TC; 82962-TC; 83735-TC; 84100-TC; 84443-TC; 84484-TC; 85025-TC; 85730-TC; 87040-TC; 87081-TC; 87086-TC; 87186-TC; 92611-TC; G0378; J0696; J1644; J7030; J7040; J7060

== ENCOUNTER 2019-11-05 10:35 | Inpatient (IN) | payer MEDICARE, MEDICAID ==
[~2019-11-05] VITALS: Ht 170.2 cm; Wt 54.4 kg
[~2019-11-05 10:35] MED LIST changes: +CIPR-262 PO; -LORA-259 PO; -TRAM50TA2 PO
[2019-11-05] MEDS ORDERED: IV NS 0.9% 1,000 ML BAG IV ONE (11:00)
[2019-11-05 11:16] LABS: APPEARANCE,URINE TURBID (CLEAR); COLOR,URINE YELLOW (YELLOW)
[2019-11-05 11:17] LABS: BILIRUBIN,URINE NEGATIVE (NEGATIVE); BLOOD, URINE 3+ Ery/uL (NEGATIVE); KETONES,URINE NEGATIVE (NEGATIVE); LEUKOCYTE ESTERASE ,URINE 3+ (NEGATIVE); NITRITE, URINE NEGATIVE (NEGATIVE); PROTEIN,URINE 2+ mg/dl (NEGATIVE); UGLUCOSE NEGATIVE (NEGATIVE); UROBILINOGEN,URINE NORMAL EU/dL (0.2)
[2019-11-05 11:18] LABS: BASOPHILS % (AUTO) 0.7 % (0.0-2.0); EOSINOPHILS % (AUTO) 0.4 % (0.0-6.0); HEMATOCRIT 38 % (39-51); HEMOGLOBIN 12.5 g/dL (13.5-17.5); LYMPHOCYTES # (AUTO) 1.7 /CMM (0.8-4.8); MEAN CORPUSCULAR HGB CONC 33 g/dl (31.0-36.0); MEAN CORPUSCULAR VOLUME 91 fL (80-96); MONOCYTES # (AUTO) 0.6 /CMM (0.1-1.30); MONOCYTES % (AUTO) 13.1 % (2.0-12.0); NEUTROPHILS # (AUTO) 2.4 /CMM (1.8-8.9); NEUTROPHILS % (AUTO) 50.8 % (43.0-81.0); PLATELET COUNT (AUTO) 176 /CMM (150-450); RED BLOOD CELL COUNT(AUTO) 4.22 MIL/uL (4.5-6.0); WHITE BLOOD COUNT (AUTO) 4.8 K/uL (4.3-11.0)
[2019-11-05 11:20] LABS: BACTERIA,URINE Few /HPF (None Seen); SQUAMOUS EPITHELIAL CELL,UR Few /HPF (None Seen); WBC,URINE TOO NUMEROUS TO COUN /HPF (0-3)
[2019-11-05 11:26] LABS: CALCIUM, SERUM 9.1 mg/dL (8.5-10.1); CARBON DIOXIDE 26 mmol/L (21-32); CHLORIDE 102 mmol/L (98-107); CREATININE 1.1 mg/dL (0.6-1.3); GLUCOSE 121 mg/dL (74-106); POTASSIUM 4.4 mmol/L (3.5-5.1); SODIUM SERUM 135 mmol/L (136-145); UREA NITROGEN, BLOOD 22 mg/dL (7-18)
[2019-11-05 11:34] LABS: ALANINE AMINOTRANSFERASE 15 U/L (12-78); ALCOHOL, BLOOD < 3 mg/dL (0-0); ALKALINE PHOSPHATASE 30 U/L (46-116); ASPARTATE AMINOTRANSFERASE 24 U/L (15-37); BILIRUBIN,TOTAL 0.5 mg/dL (0.2-1.0)
[2019-11-05 11:41] LABS: ALBUMIN 3.3 g/dL (3.4-5.0)
[2019-11-05 11:42] LABS: ACETAMINOPHEN 0 ug/ml (10-30); SALICYLATE < 0.2 mg/dL (2.8-20.0)
[2019-11-05] MEDS ORDERED: CEFTRIAXONE 1GM BAG (ER ONLY) 50 ML IV ONE (11:50)
[2019-11-05] MEDS ORDERED: CEFTRIAXONE 1GM BAG (ER ONLY) 1 GM/50 ML PIGGYBACK IV ONE (12:00)
[2019-11-05] MEDS ORDERED: IV NS 0.9% 1,000 ML IV PRN (12:16)
[2019-11-05 12:22] LABS: SERUM AMMONIA < 10 umol/L (11-32)
[2019-11-05] MEDS ORDERED: Z GUARD REMEDY 2 OZ OINT TP PRN (12:30)
[2019-11-05] MEDS ORDERED: MAG HYDROX/AL HYDROX/SIMETH 30 ML UDC PO PRN (12:30)
[2019-11-05] MEDS ORDERED: MAGNESIUM HYDROXIDE 30 ML UDC PO PRN (12:30)
[2019-11-05] MEDS ORDERED: ONDANSETRON HCL/PF 4 MG/2 ML VIAL IVP PRN (12:30)
[2019-11-05] MEDS ORDERED: ENOXAPARIN SODIUM 40 MG/0.4 ML DISP.SYRIN SQ SCH (13:00)
[2019-11-05 20:00] VITALS: BP 146/77
[2019-11-06 04:00] VITALS: BP 135/72
[2019-11-06 06:51] LABS: BASOPHILS % (AUTO) 0.8 % (0.0-2.0); EOSINOPHILS % (AUTO) 0.9 % (0.0-6.0); HEMATOCRIT 34 % (39-51); HEMOGLOBIN 11.4 g/dL (13.5-17.5); LYMPHOCYTES # (AUTO) 1.3 /CMM (0.8-4.8); LYMPHOCYTES % (AUTO) 46.1 % (20.0-44.0); MEAN CORPUSCULAR HGB CONC 33 g/dl (31.0-36.0); MEAN CORPUSCULAR VOLUME 90 fL (80-96); MONOCYTES # (AUTO) 0.5 /CMM (0.1-1.30); MONOCYTES % (AUTO) 17.1 % (2.0-12.0); NEUTROPHILS % (AUTO) 35.1 % (43.0-81.0); PLATELET COUNT (AUTO) 180 /CMM (150-450); RED BLOOD CELL COUNT(AUTO) 3.83 MIL/uL (4.5-6.0); WHITE BLOOD COUNT (AUTO) 2.7 K/uL (4.3-11.0)
[2019-11-06 07:16] LABS: CALCIUM, SERUM 8.3 mg/dL (8.5-10.1); CREATININE 0.9 mg/dL (0.6-1.3); PHOSPHORUS 2.8 mg/dL (2.5-4.9)
[2019-11-06] MEDS ORDERED: TRAM50TA2 PO (07:40)
[2019-11-06] MEDS ORDERED: LORA-259 PO (07:40)
[2019-11-06] MEDS ORDERED: IV NS 0.9% 1,000 ML IV PRN (07:49)
[2019-11-06 07:50] LABS: THYROID STIMULATING HORMONE 0.749 uIU/mL (0.358-3.74)
[2019-11-06 08:00] VITALS: BP 142/74
[2019-11-06 08:07] LABS: BAND % (MANUAL) 2 % (0.0-5.0); EOSINOPHILS % (MANUAL) 1 % (0-4); LYMPHOCYTES % (MANUAL) 38 % (16-48); MONOCYTES % (MANUAL) 19 % (0-11.0); NEUTROPHILS % (MANUAL) 40 (42-76)
[2019-11-06] MEDS: BACLOFEN (10 MG) 10 MG TABLET PO SCH ×3 (09:00→16:41)
[2019-11-06] MEDS: AMLODIPINE BESYLATE 5 MG TABLET PO SCH (09:00)
[2019-11-06] MEDS: BENAZEPRIL HCL 20 MG TABLET PO SCH (09:00)
[2019-11-06] MEDS: TIMOLOL -XE 0.5% 5 ML BOTTLE EACHEYE SCH (09:13)
[2019-11-06 12:00] VITALS: BP 140/78
[2019-11-06] MEDS ORDERED: CEFTRIAXONE 1 G in IV D5W 50 ML IV SCH (12:00)
[2019-11-06 16:00] VITALS: BP 127/82
[2019-11-06] MEDS: MEMANTINE HCL 5 MG TABLET PO SCH (16:41)
[2019-11-06 20:00] VITALS: BP 120/64
[2019-11-06] MEDS: DONEPEZIL 5 MG TABLET PO SCH (21:35)
[2019-11-06] MEDS: ENOXAPARIN SODIUM 40 MG/0.4 ML DISP.SYRIN SQ SCH (21:35)
[2019-11-06] MEDS: risperiDONE 0.25 MG TABLET PO SCH (21:36)
[2019-11-07 04:00] VITALS: BP 133/78
[2019-11-07 06:39] LABS: BASOPHILS % (AUTO) 0.7 % (0.0-2.0); EOSINOPHILS % (AUTO) 0.6 % (0.0-6.0); HEMATOCRIT 34 % (39-51); HEMOGLOBIN 11.3 g/dL (13.5-17.5); LYMPHOCYTES # (AUTO) 1.4 /CMM (0.8-4.8); LYMPHOCYTES % (AUTO) 53.6 % (20.0-44.0); MEAN CORPUSCULAR HGB CONC 34 g/dl (31.0-36.0); MEAN CORPUSCULAR VOLUME 88 fL (80-96); MONOCYTES # (AUTO) 0.4 /CMM (0.1-1.30); MONOCYTES % (AUTO) 14.6 % (2.0-12.0); NEUTROPHILS # (AUTO) 0.8 /CMM (1.8-8.9); NEUTROPHILS % (AUTO) 30.5 % (43.0-81.0); PLATELET COUNT (AUTO) 182 /CMM (150-450); RED BLOOD CELL COUNT(AUTO) 3.82 MIL/uL (4.5-6.0); WHITE BLOOD COUNT (AUTO) 2.6 K/uL (4.3-11.0)
[2019-11-07 06:57] LABS: ALBUMIN 2.9 g/dL (3.4-5.0); BILIRUBIN,TOTAL 0.4 mg/dL (0.2-1.0); CALCIUM, SERUM 8.6 mg/dL (8.5-10.1); CREATININE 0.8 mg/dL (0.6-1.3); PHOSPHORUS 2.9 mg/dL (2.5-4.9); POTASSIUM 3.9 mmol/L (3.5-5.1); TOTAL PROTEIN, SERUM 6.2 g/dL (6.4-8.2)
[2019-11-07 08:00] VITALS: BP 118/76
[2019-11-07] MEDS: TIMOLOL -XE 0.5% 5 ML BOTTLE EACHEYE SCH (09:00)
[2019-11-07 09:04] LABS: IRON, SERUM 69 ug/dl (50-175); TOTAL IRON BINDING CAPACITY 170 ug/dl (250-450)
[2019-11-07] MEDS: BENAZEPRIL HCL 20 MG TABLET PO SCH (09:08)
[2019-11-07] MEDS: ESCITALOPRAM OXALATE (10 MG) 10 MG TABLET PO SCH (09:09)
[2019-11-07] MEDS: AMLODIPINE BESYLATE 5 MG TABLET PO SCH (09:09)
[2019-11-07] MEDS: MEMANTINE HCL 5 MG TABLET PO SCH ×2 (09:09→17:52)
[2019-11-07] MEDS: BACLOFEN (10 MG) 10 MG TABLET PO SCH ×3 (09:10→17:52)
[2019-11-07 09:16] LABS: FERRITIN 192 ng/mL (8-388)
[2019-11-07 16:00] VITALS: BP 128/80
[2019-11-07] MEDS: CEFEPIME 1 GM in IV D5W 50 ML IV SCH (17:54)
[2019-11-07 20:00] VITALS: BP 152/92
[2019-11-07] MEDS: ENOXAPARIN SODIUM 40 MG/0.4 ML DISP.SYRIN SQ SCH (21:09)
[2019-11-07] MEDS: risperiDONE 0.25 MG TABLET PO SCH (21:10)
[2019-11-07] MEDS: ACETAMINOPHEN 325 MG TABLET PO PRN (21:10)
[2019-11-07] MEDS: DONEPEZIL 5 MG TABLET PO SCH (21:10)
[2019-11-08 04:00] VITALS: BP 157/88
[2019-11-08] MEDS: ACETAMINOPHEN 325 MG TABLET PO PRN ×2 (04:16→12:10)
[2019-11-08 08:00] VITALS: BP 191/103
[2019-11-08] MEDS: AMLODIPINE BESYLATE 5 MG TABLET PO SCH (08:37)
[2019-11-08] MEDS: BACLOFEN (10 MG) 10 MG TABLET PO SCH ×3 (08:37→16:50)
[2019-11-08] MEDS: MEMANTINE HCL 5 MG TABLET PO SCH ×2 (08:37→16:50)
[2019-11-08] MEDS: ESCITALOPRAM OXALATE (10 MG) 10 MG TABLET PO SCH (08:37)
[2019-11-08] MEDS: TIMOLOL -XE 0.5% 5 ML BOTTLE EACHEYE SCH (08:38)
[2019-11-08] MEDS: BENAZEPRIL HCL 20 MG TABLET PO SCH (08:38)
[2019-11-08] MEDS ORDERED: CEFE1FRO IV (11:42)
[2019-11-08 13:11] VITALS: BP 170/80
[2019-11-08] MEDS ORDERED: hydrALAZINE HCL 10 MG TABLET PO SCH (13:30)
[2019-11-08] MEDS ORDERED: hydrALAZINE HCL 25 MG TABLET PO ONE (13:30)
[2019-11-08 14:02] VITALS: BP 122/66
[2019-11-08] MEDS: CEFEPIME 1 GM in IV D5W 50 ML IV SCH (15:11)
[2019-11-08 16:00] VITALS: BP 152/101
[2019-11-08 17:35] VITALS: BP 101/47
== END 2019-11-08 17:56 | DRG 689 ==
LOC: ER 10:44 → TELE1 13:50 → MEDSG1 13:59
PROVIDERS: ADMIT Nurse Practitioner Acute Care; ATTEND Nurse Practitioner Acute Care
PROC: 05HY33Z Insertion of Infusion Device into Upper Vein, Percutaneous Approach (ICD-10-PCS; principal; 2019-11-07)
DX: N39.0 Urinary tract infection, site not specified (principal); G93.41 Metabolic encephalopathy; N17.0 Acute kidney failure with tubular necrosis; E87.1 Hypo-osmolality and hyponatremia; G30.9 Alzheimer's disease, unspecified; F02.80 Dementia in other diseases classified elsewhere, unspecified severity, without behavioral disturbance, psychotic disturbance, mood disturbance, and anxiety; G89.4 Chronic pain syndrome; I10 Essential (primary) hypertension; E11.9 Type 2 diabetes mellitus without complications; E86.1 Hypovolemia; Z85.46 Personal history of malignant neoplasm of prostate; D63.8 Anemia in other chronic diseases classified elsewhere; F32.9 Major depressive disorder, single episode, unspecified; F41.9 Anxiety disorder, unspecified; R07.9 Chest pain, unspecified; D72.819 Decreased white blood cell count, unspecified; Z86.73 Personal history of transient ischemic attack (TIA), and cerebral infarction without residual deficits; B96.89 Other specified bacterial agents as the cause of diseases classified elsewhere; I35.1 Nonrheumatic aortic (valve) insufficiency; I34.0 Nonrheumatic mitral (valve) insufficiency
CPT/HCPCS: 36410; 36415; 70450-TC; 71045-TC; 80048-TC; 80053-TC; 80061-TC; 80076-TC; 80305; 81000-TC; 82140-TC; 82728-TC; 83540-TC; 83735-TC; 84100-TC; 84443-TC; 84484-TC; 85025-TC; 87081-TC; 87086-TC; 87186-TC; 92611-TC; 97110-TC; 97116-TC; 97530-TC; G0378; G0480; J0692; J0696; J1650; J7030; J7060